=== PATIENT | male | born 1950 | race Caucasian/White ===

== ENCOUNTER → 2018-05-20 | Outpatient (CLI) | payer MEDICARE ==
--- NOTE | 2018-05-20 18:18 | Diagnostic Imaging Report ---
PROCEDURE:X-RAY ABDOMEN - KUB COMPARISON:None. INDICATIONS:KIDNEY STONE FOLLOW UP FINDINGS: Nonobstructive bowel gas pattern. 5-6 mm radiopaque density projects over the superior to mid left renal shadow. There are punctate radiopaque densities projecting over the superior pole of the left renal shadow. 3-4 mm radiopaque density projects in the mid right renal shadow. No radiopaque densities project over the expected course of the ureters. No acute bony abnormalities. Amorphous calcific densities projecting in the lower mid pelvis. CONCLUSION: 1. Bilateral nonobstructing calculi, as described. No radiopaque densities project over the expected course of the ureters. 2. Amorphous calcific densities projecting in the lower mid pelvis are likely located in the prostate and less likely represent bladder calculi. Hitesh Bond M.D. Dictated by: Hitesh Bond M.D. on 05/20/2018 at 18:24 Electronically approved by: Hitesh Bond M.D. on 05/20/2018 at 18:24
== END ==
LOC: RAD 15:14
PROVIDERS: ATTEND Urology
DX: N20.0 Calculus of kidney (principal)
CPT/HCPCS: 74018

== ENCOUNTER → 2018-05-28 | Day surgery (SDC) | payer MEDICARE ==
[2018-05-27 14:51] LABS: BASOPHILS % 0.3 % (0.0-1.0); EOSINOPHILS # (AUTO) 0.3 (0.0-0.4); EOSINOPHILS % 3.2 % (0.0-6.0); HEMATOCRIT 41.5 % (38.2-49.6); LYMPHOCYTES # (AUTO) 1.7 (1.0-3.2); LYMPHOCYTES % 17.9 % (18.0-39.1); MEAN CORPUSCULAR HEMOGLOBIN 30.2 pg (28-32); MEAN CORPUSCULAR HGB CONC 33.7 g/dL (31-35); MEAN CORPUSCULAR VOLUME 89.4 fL (81-99); MONOCYTES # (AUTO) 0.5 (0.2-0.8); MONOCYTES % 5.1 % (4.4-11.3); NEUTROPHILS % 73.3 % (38.7-80.0); PLATELET COUNT 177 x10e3/uL (140-360); RED BLOOD COUNT 4.64 x10e6/uL (4.3-5.7); RED CELL DISTRIBUTION WIDTH 12.9 % (11.7-14.4)
[2018-05-27 15:04] LABS: ANION GAP 14.5 mmol/L (8-16); CALCIUM 9.2 mg/dL (8.4-10.2); CREATININE, SERUM 1.54 mg/dL (0.72-1.25); POTASSIUM 3.5 mmol/L (3.5-5.1)
--- NOTE | 2018-05-27 15:28 | Diagnostic Imaging Report ---
PROCEDURE: Frontal and lateral views of the chest. COMPARISON: None. INDICATIONS: PREOPERATIVE CHEST XRAY FOR ESWL SURGERY FINDINGS: Lines/tubes: None. Lungs: The lungs are well inflated and clear. There is no evidence of pneumonia or pulmonary edema. Pleura: There is no pleural effusion or pneumothorax. Heart and mediastinum: The heart and the mediastinum are normal. Bones: No acute bony abnormality. Degenerative changes in the thoracic spine. IMPRESSION: 1. No acute cardiopulmonary abnormalities. Hitesh Bond M.D. Dictated by: iHtesh Bond M.D. on 05/27/2018 at 15:34 Electronically approved by: Hitesh Bond M.D. on 05/27/2018 at 15:34
[~2018-05-28] MED LIST: AMLODIPINE BESYL5 MG PO; ATORVASTATIN CA20 MG PO; B COMPLEX1 EACH PO; CEFTRIAXONE SOD 1 GM VIAL ONE; DEXAMETHASONE SOD PHOS INJ 4 MG/ML VIAL ONE; FLOMAX0.4 MG PO; LATANOPROST2.5 ML OU; LIDOCAINE HCL 2% LOCAL INJ 5 ML SDV VIAL INJ ONE; LISINOPRIL-HCT1 EACH PO; METFORMIN HCL500 MG PO; MULTIVITAMINS1 EAC7 PO; OMEGA 3 1,0001 EACH PO; OMEPRAZOLE20 MG PO; ONDANSETRON HCL INJ 2 MG/ML VIAL ONE; OSTEO BI-FLEX1 EAC2 PO; POTASSIUM CITR10 MEQ PO; PROPOFOL IV EMULSION 10 MG/ML 50 ML VIAL ONE; SEVOFLURANE INHAL SOLN 250 ML PEN BTL ONE; TIMOPTIC 0.5%1 EACH OU; TURMERIC/CURCUMIN PO; VITAMIN D34000 UNIT PO
--- NOTE | 2018-05-28 07:33 | Diagnostic Imaging Report ---
EXAMINATION: KUB - two views INDICATION: KUB COMPARISON: CT Abdomen/Pelvis 05/26/18 and CXR 05/26/18. FINDINGS: There is a 7 mm calcification overlying the left upper pole kidney and a 4 mm calcification overlying the right mid pole kidney. Additional 3 mm calcification overlying the right mid pole kidney may be a renal stone or within the bowel. No other urinary calcifications are noted. Status post cholecystectomy. Non-obstructive bowel gas pattern. No acute bony findings. IMPRESSION: Renal stones as above: 7 mm overlying the left upper pole and 4 mm overlying the right mid pole. Signed by: Dr. Shanique Naik MD on 05/28/2018 7:30 AM
--- NOTE | 2018-05-28 07:46 | Operative Report ---
DATE OF PROCEDURE: May 28, 2018 PREOPERATIVE DIAGNOSIS: Left kidney stone. POSTOPERATIVE DIAGNOSIS: Left kidney stone. PROCEDURES 1. Staged shock wave lithotripsy, left side. 2. Supervision of fluoroscopy. ANESTHESIA: General. ESTIMATED BLOOD LOSS: Minimal. COMPLICATIONS: None. INDICATIONS: Mr. Damon is a very pleasant 68-year-old male with symptomatic left-sided kidney stones. He and I had a long discussion about alternatives, risks and benefits, including doing nothing, shock wave lithotripsy, ureteroscopy, percutaneous surgery and open surgery. He voiced understanding of the options, alternatives, risks and benefits and elected to proceed. PROCEDURE IN DETAIL: After informed consent was obtained, the patient was taken to the operative suite, placed supine and underwent general anesthesia by the anesthesia service and given routine perioperative instructions. The stone was then localized in the X, Y and Z planes. A total of 3000 shocks at a maximum power setting of 6 were delivered to the stone. The patient tolerated the procedure well and was transported to the recovery room in excellent condition. SUPERVISION OF FLUOROSCOPY: I was present throughout the entire procedure and I supervised the use of fluoroscopy. Job#: [id number] RI cc: DEYA OCHOA MD
== END | disposition home or self-care (01) ==
LOC: OR 05:16
PROVIDERS: ATTEND Urology
DX: N20.0 Calculus of kidney (principal); R97.20 Elevated prostate specific antigen [PSA]; E11.22 Type 2 diabetes mellitus with diabetic chronic kidney disease; I12.9 Hypertensive chronic kidney disease with stage 1 through stage 4 chronic kidney disease, or unspecified chronic kidney disease; N18.9 Chronic kidney disease, unspecified; G47.33 Obstructive sleep apnea (adult) (pediatric); Z01.810 Encounter for preprocedural cardiovascular examination; Z01.812 Encounter for preprocedural laboratory examination; Z01.818 Encounter for other preprocedural examination; Z79.84 Long term (current) use of oral hypoglycemic drugs
CPT/HCPCS: 36415 ×2; 50590; 71046; 74018; 80048; 82948; 85025; 93005; J0696; J1100; J2001; J2405

== ENCOUNTER → 2018-07-02 | Outpatient (CLI) | payer MEDICARE ==
[~2018-07-02] MED LIST changes: -CEFTRIAXONE SOD 1 GM VIAL ONE; -DEXAMETHASONE SOD PHOS INJ 4 MG/ML VIAL ONE; -LIDOCAINE HCL 2% LOCAL INJ 5 ML SDV VIAL INJ ONE; -ONDANSETRON HCL INJ 2 MG/ML VIAL ONE; -PROPOFOL IV EMULSION 10 MG/ML 50 ML VIAL ONE; -SEVOFLURANE INHAL SOLN 250 ML PEN BTL ONE
--- NOTE | 2018-07-02 15:36 | Diagnostic Imaging Report ---
RADIOGRAPH(S) OF THE ABDOMEN AND PELVIS, 2 view(s) HISTORY: Calculus of kidney, right side COMPARISON: Abdominal pelvic radiographs May 28, 2018 and May 20, 2018. FINDINGS: No specific evidence of obstruction or ileus. Metallic clips in the right upper quadrant of the abdomen are compatible with prior cholecystectomy. A stable 3 mm calcific density projects at the interpolar region of the right kidney. The remaining radiopaque densities are not definitively seen on this x-ray and may have represented radiopaque bowel contents. Multiple stable pelvic calcifications in the region of the prostate. The bones are partially obscured by stool and overlying bowel gas. IMPRESSION: 1. Nonobstructive bowel gas pattern. 2. A 3 mm right abdominal calcification, a small renal calculus remains a consideration. If further imaging evaluation is warranted, consider a follow-up renal ultrasound. Signed by: Dr. Haris Hunter D.O., M.M.M. on 07/02/2018 3:31 PM
== END ==
LOC: RAD 13:09
PROVIDERS: ATTEND Urology
DX: N20.0 Calculus of kidney (principal)
CPT/HCPCS: 74018

== ENCOUNTER → 2019-05-29 | Day surgery (SDC) | payer MEDICARE ==
--- NOTE | 2019-05-27 14:51 | Diagnostic Imaging Report ---
Exam: KUB - 2 views Indication: Renal calculi, preoperative Comparison: KUB of 07/02/2018 Findings: 4 mm right upper pole and 4 mm left upper pole renal calculi. No other radiographically apparent calculi. 5 to 6 mm calcific densities overlying the lower pelvis possibly represent bladder calculi, prostate calculi, or phleboliths. Nonobstructive bowel gas pattern. No free air. Status post cholecystectomy. Degenerative changes of the lower lumbar spine. Impression: 4 mm right upper pole and 4 mm left upper pole renal calculi. Calcific densities overlying the lower pelvis may represent phlebolith or bladder calculi or prostate calcifications. Signed by: Paolo Adorno MD on 05/27/2019 2:47 PM
--- NOTE | 2019-05-27 14:54 | Diagnostic Imaging Report ---
EXAMINATION: CHEST 2 VIEWS INDICATION: Pre-operative COMPARISON: None FINDINGS: LINES/TUBES:None LUNGS:The lungs are well-inflated. No focal consolidation or pulmonary edema. PLEURA:No pleural effusion or pneumothorax. MEDIASTINUM:The cardiomediastinal silhouette appears normal in size and shape. BONES/SOFT TISSUES:No acute osseous injury. Degenerative changes of the visualized spine. ABDOMEN:No free air under the diaphragm. Status post cholecystectomy. IMPRESSION: No focal pneumonia or pulmonary edema. Signed by: Paolo Adorno MD on 05/27/2019 2:50 PM
[2019-05-27 16:09] LABS: BASOPHILS % 0.4 % (0.0-1.0); EOSINOPHILS % 0.1 % (0.0-6.0); HEMOGLOBIN 13.7 g/dL (14.0-18.0); LYMPHOCYTES # (AUTO) 1.8 (1.0-3.2); LYMPHOCYTES % 16.6 % (18.0-39.1); MEAN CORPUSCULAR HEMOGLOBIN 29.1 pg (28-32); MEAN CORPUSCULAR HGB CONC 32.6 g/dL (31-35); MEAN CORPUSCULAR VOLUME 89.2 fL (81-99); MONOCYTES # (AUTO) 0.8 (0.2-0.8); NEUTROPHILS % 74.7 % (38.7-80.0); PLATELET COUNT 235 x10e3/uL (140-360); RED BLOOD COUNT 4.71 x10e6/uL (4.3-5.7); RED CELL DISTRIBUTION WIDTH 13.1 % (11.7-14.4)
[2019-05-27 16:27] LABS: ANION GAP 15.9 mmol/L (8-16); CALCIUM 9.1 mg/dL (8.4-10.2); CREATININE, SERUM 1.57 mg/dL (0.72-1.25); POTASSIUM 3.9 mmol/L (3.5-5.1)
[~2019-05-29] MED LIST changes: +CEFTRIAXONE SOD 1 GM/NS 50 ML 50 ML IV ONE; +DEPO-MEDRO80 MG/1 ML PO; +LEVOCETIRIZINE D5 MG PO; +LIDOCAINE HCL 2% LOCAL INJ 5 ML SDV VIAL INJ ONE; +MIDAZOLAM HCL 2 MG/2 ML VIAL ONE; +ONDANSETRON HCL INJ 2MG/ML 2ML 2 MG/ML VIAL ONE; +PROPOFOL IV EMULSION 10 MG/ML 20 ML VIAL ONE; +SEVOFLURANE INHAL SOLN 250 ML PEN BTL ONE; +allergy PO
--- OUTSIDE RECORDS SUMMARY | 2019-05-29 05:06 | XMS REPORT | Clinical Summary ---
Author Author [facility] Organization [facility] Address Unknown Phone Unavailable Care Team Providers Care Family Program Specialist Name Role Phone Maulik Salcedo MD PCP Unavailable Allergies No Known Allergies Medications End Date Status Medication Sig Dispensed Refills Start Date Active latanoprost (XALATAN) INT 1 GTT IN 12 0.005 % ophthalmic OU Q NIGHT 7 solution Active timolol (TIMOPTIC) 0.5 % INT 1 GTT IN ophthalmic solution OU BID 7 Active multivitamin with Take by 0 minerals tablet mouth. Active omega-3 acid ethyl esters Take by mouth 0 (LOVAZA) 1 gram capsule 2 (two) times 1 a day. Active cholecalciferol, vitamin Take 4,000 0 D3, (VITAMIN D3) 4,000 Units by unit capsule mouth daily. Active VITAMIN B COMPLEX Take by mouth 0 (B-COMPLEX ORAL) daily. Active VITAMIN A ACETATE SL Place under 0 the tongue. Active TURMERIC ORAL Take by 0 mouth. Active acetaminophen (TYLENOL Take by 0 ARTHRITIS PAIN ORAL) mouth. Active cetirizine HCl (ZYRTEC Take 5 mg by 0 ORAL) mouth. Active lisinopril-hydrochlorothi TK 2 TS PO D 180 tablet 1 azide 9 (PRINZIDE,ZESTORETIC) 20-12.5 mg per tablet Active atorvastatin (LIPITOR) 20 TK 1 T PO Q 90 tablet 1 MG tablet NIGHT 9 Active fluticasone Inhale 1 1 each 11 furoate-vilanterol (BREO inhalations 9 ELLIPTA) 200-25 mcg/dose once daily. blister with device powder for inhalation Active amLODIPine (NORVASC) 2.5 TK 1 T PO D 90 tablet 1 mg tablet 9 Active omeprazole (PriLOSEC) 20 TK ONE C PO 90 capsule 1 MG capsule QD 9 Active metFORMIN (GLUCOPHAGE) Take 1 tablet 180 tablet 1 500 mg tablet (500 mg 9 total) by mouth 2 (two) times a day with meals. Active tamsulosin (FLOMAX) 0.4 TK 1 C PO D 90 capsule 3 mg capsule 9 Active potassium citrate TAKE 1 TABLET 90 tablet 5 (UROCIT-K) 10 mEq (1,080 BY MOUTH 9 mg) CR tablet THREE TIMES DAILY 03/04/2019 Discontinued amLODIPine (NORVASC) 2.5 TK 1 T PO D 3 mg tablet 7 03/04/2019 Discontinued lisinopril-hydrochlorothi TK 2 TS PO D 2 azide 7 (PRINZIDE,ZESTORETIC) 20-12.5 mg per tablet 03/04/2019 Discontinued omeprazole (PriLOSEC) 20 TK ONE C PO 0 MG capsule QD 7 03/04/2019 Discontinued atorvastatin (LIPITOR) 20 TK 1 T PO Q 3 MG tablet NIGHT 7 12/19/2018 Discontinued potassium citrate TK 1 T PO TID 2 (UROCIT-K) 10 mEq (1,080 7 mg) CR tablet 11/17/2018 Discontinued metFORMIN (GLUCOPHAGE) daily 3 1,000 mg tablet 7 03/04/2019 Discontinued tamsulosin (FLOMAX) 0.4 TK 1 C PO D 3 mg capsule,extended 7 release 24hr 11/17/2018 Discontinued sodium,potassium,mag Please use as 354 mL 0 sulfates (SUPREP BOWEL directed 7 PREP KIT) 17.5-3.13-1.6 gram recon soln 03/04/2019 Discontinued metFORMIN (GLUCOPHAGE) Take 500 mg 0 500 mg tablet by mouth 2 (two) times a day with meals. 03/04/2019 Discontinued quiNINE (QUALAQUIN) 324 Take 648 mg 0 MG capsule by mouth every 8 (eight) hours. 03/04/2019 Discontinued fluticasone-vilanterol Inhale 1 0 (BREO ELLIPTA) 200-25 inhalations mcg/dose blister with once daily. device powder for inhalation 02/13/2019 Discontinued potassium citrate TK 1 T PO TID 90 tablet 1 (UROCIT-K) 10 mEq (1,080 9 mg) CR tablet 03/04/2019 Discontinued potassium citrate TAKE 1 TABLET 90 tablet 0 (UROCIT-K) 10 mEq (1,080 BY MOUTH 9 mg) CR tablet THREE TIMES DAILY Active Problems Problem Noted Date Family history of cervical cancer 12/31/2018 Family history of colon cancer 12/31/2018 Family history of ischemic heart disease 12/31/2018 Pseudophakia of both eyes 12/31/2018 History of cataract extraction 12/31/2018 History of cholecystectomy 12/31/2018 Hyperplasia of prostate with lower urinary tract symptoms (LUTS) 12/31/2018 Sensory hearing loss, bilateral 12/31/2018 Overweight 12/31/2018 BMI 27.0-27.9,adult 12/31/2018 Routine general medical examination at a health care facility 12/31/2018 Chronic hoarseness 12/31/2018 Overview: evaluated by ent will follow up with ent in one month Mixed hyperlipidemia 11/17/2018 Controlled type 2 diabetes mellitus with diabetic nephropathy, without 11/17/2018 long-term current use of insulin Recurrent kidney stones 11/17/2018 CKD (chronic kidney disease) stage 3, GFR 30-59 ml/min 11/17/2018 Benign hypertensive kidney disease 11/17/2018 BMI 26.0-26.9,adult 11/17/2018 Mild intermittent asthma without complication 11/17/2018 Open-angle glaucoma of both eyes 11/17/2018 VIRAJ on CPAP 11/17/2018 Diverticulosis large intestine w/o perforation or abscess w/o bleeding 11/11/2017 Diaphragmatic hernia without obstruction and without gangrene 11/11/2017 Dyspepsia 09/25/2017 Gastroesophageal reflux disease 09/25/2017 Multiple gastric polyps 09/25/2017 Diarrhea 09/25/2017 Polyp of colon 09/25/2017 Encounters Care Team Description Date Type Specialty Maulik Salcedo MD 03/04/2019 Orders Only Family Medicine Maulik Salcedo MD 02/13/2019 Refill Family Medicine Anh Hernandez, SHAYY Diaphragmatic hernia without obstruction and without gangrene (Primary Dx); Mild intermittent asthma without complication; VIRAJ on CPAP; Gastroesophageal reflux disease without esophagitis; Multiple gastric polyps; Polyp of colon, unspecified part of colon, unspecified type; Diverticulosis large intestine w/o perforation or abscess w/o bleeding; Controlled type 2 diabetes mellitus with stage 3 chronic kidney disease, without long-term current use of insulin (HCC); CKD (chronic kidney disease) stage 3, GFR 30-59 ml/min (HCC); Benign hypertensive kidney disease; Open-angle glaucoma of both eyes, unspecified glaucoma stage, unspecified open- angle glaucoma type; Mixed hyperlipidemia; BMI 27.0-27.9,adult; Overweight; Sensory hearing loss, bilateral; Hyperplasia of prostate with lower urinary tract symptoms (LUTS); History of cholecystectomy; History of cataract extraction, unspecified laterality; Pseudophakia of both eyes; Family history of ischemic heart disease; Family history of colon cancer; Family history of cervical cancer; Routine general medical examination at a health care facility; Recurrent kidney stones; Chronic hoarseness 12/31/2018 Office Visit Family Medicine Vero Mccartney MA 12/19/2018 Orders Only Family Medicine Maulik Salcedo MD Benign hypertensive kidney disease (Primary Dx); CKD (chronic kidney disease) stage 3, GFR 30-59 ml/min ([facility]); Recurrent kidney stones; Controlled type 2 diabetes mellitus with diabetic nephropathy, without long-term current use of insulin ([facility]); Mixed hyperlipidemia; BMI 26.0-26.9,adult; Mild intermittent asthma without complication; Gastroesophageal reflux disease without esophagitis; Open-angle glaucoma of both eyes, unspecified glaucoma stage, unspecified open- angle glaucoma type; VIRAJ on CPAP; Chronic hoarseness 11/17/2018 Office Visit Family Medicine after 05/28/2018 Immunizations Name Dates Previously Given Next Due INFLUENZA QUAD 08/13/2018, 07/19/2011, 08/07/2010, 09/09/2006, 09/18/2005, 08/15/2004, 08/18/2003 Pneumococcal Conjugate 11/17/2018 13-Valent Pneumococcal 03/24/2009 Polysaccharide Tdap 03/24/2009 Family History Medical History Relation Name Comments Cancer Father Dick 1963 [place] Cervical cancer Mother Ruby Mar[place] Heart disease Mother Ruby 1987 [place] Heart failure Mother Ruby Mar[place] Colon cancer Other half sister [dad] Relation Name Status Comments Father Dick [place] Mother Ruby Marisol Other half sister [dad] Social History Date Tobacco Use Types Packs/Day Years Used Never Smoker Smokeless Tobacco: Never Used Alcohol Use Drinks/Week oz/Week Comments No Sex Assigned at Date Recorded Male 11/11/2018 9:48 AM [employer] Job Start Date Occupation Not on file Not on file Not on file Travel End Travel History Travel Start No recent travel history available. Last Filed Vital Signs Time Taken Vital Sign Reading 12/31/2018 1:18 PM CDT Blood Pressure 136/79 12/31/2018 1:15 PM CDT Pulse 65 12/31/2018 1:15 PM CDT Temperature 36.6 C (97.9 F) - Respiratory Rate - 12/31/2018 1:15 PM CDT Oxygen Saturation 96% - Inhaled Oxygen - Concentration 12/31/2018 1:15 PM CDT Weight 76 kg (167 lb 9.6 oz) 12/31/2018 1:15 PM CDT Height 167.6 cm (5' 6") 12/31/2018 1:15 PM CDT Body Mass Index 27.05 Plan of Treatment Care Team Description Date Type Specialty Maulik Salcedo MD [address] [place] [id number] [phone] 07/03/2019 Office Visit Family Medicine Health Maintenance Due Date Last Done Comments DIABETIC RETINAL EYE EXAM 1949 DIABETIC FOOT EXAM 1959 SHINGLES VACCINES (#1) 1999 INFLUENZA VACCINE 05/14/2019 08/13/2018, 07/19/2011, 08/07/2010, Additional history exists 65+ PNEUMOCOCCAL VACCINE 11/17/2019 11/17/2018, 03/24/2009 (2 of 2 - PPSV23) COLONOSCOPY SCREENING 10/29/2027 10/29/2017 Procedures Comments Procedure Name Priority Date/Time Associated Diagnosis CBC WITH PLATELET AND Routine 12/18/2018 Recurrent kidney stones DIFFERENTIAL 9:47 AM [employer] Controlled type 2 diabetes mellitus with diabetic nephropathy, without long-term current use of insulin (HCC) Mild intermittent asthma without complication HEMOGLOBIN A1C Routine 12/18/2018 Controlled type 2 9:47 AM [employer] WORK[employer] diabetes mellitus with diabetic nephropathy, without long-term current use of insulin (HCC) URINALYSIS, AUTOMATED Routine 12/18/2018 Controlled type 2 WITH MICROSCOPY 9:47 AM [employer] WORK[employer] diabetes mellitus with diabetic nephropathy, without long-term current use of insulin ([facility]) MICROALBUMIN / CREATININE Routine 12/18/2018 Controlled type 2 URINE RATIO 9:47 AM [employer] WORK[employer] diabetes mellitus with diabetic nephropathy, without long-term current use of insulin ([facility]) HEPATIC FUNCTION PANEL Routine 12/18/2018 Mixed hyperlipidemia 9:47 AM [employer] WORK[employer] LIPID PANEL Routine 12/18/2018 Mixed hyperlipidemia 9:47 AM [employer] WORK[employer] BASIC METABOLIC PANEL Routine 12/18/2018 Benign hypertensive 9:47 AM [employer] WORK[employer] kidney disease CKD (chronic kidney disease) stage 3, GFR 30-59 ml/min ([facility]) after 05/28/2018 Results * Microalbumin / creatinine urine ratio (12/18/2018 9:47 AM [employer]ATE WORKER) Creatinine, 157 20 - 320 mg/dL [facility] urine, random [facility] [place] Microalbumin, 0.6 See Note: mg/dL [facility] urine Comment: DI[facility]NOST[facility] Reference Range: [place] Reference Range Not established Microalbumin/cr 4 <30 mcg/mg creat [facility] eatinine ratio Comment: DIAGNOSTICS The ADA defines abnormalities [place] in albumin excretion as follows: Category Result (mcg/mg creatinine) Normal <30 Microalbuminuria 30-299 Clinical albuminuria > KF=261 The ADA recommends that at least two of three specimens collected within a 3-6 month period be abnormal before considering a patient to be within a diagnostic category. Specimen Urine Narrative Performed At FASTING:YES [facility] FASTING: YES Resulting Agency Comment Performing Organization Information: Site ID: [id number] Name: [facility] Address: [address] [place] [phone] Director: Roxanne Agudelo Performing Organization Address City/State/Zipcode Phone Number [facility] [address] [address] * Urinalysis, automated with microscopy (12/18/2018 9:47 AM [employer]ATE WORKER) Color, UA YELLOW YELLOW [facility] [place] Appearance CLEAR CLEAR [facility] [place] Specific 1.020 1.001 - 1.035 [facility] gravity, urine [facility] [place] pH, urine 7.0 5.0 - 8.0 [facility] [place] Glucose, urine NEGATIVE NEGATIVE [facility] [place] Bilirubin, UA NEGATIVE NEGATIVE [facility] [place] Ketones, UA NEGATIVE NEGATIVE [facility] [place] Occult blood, NEGATIVE NEGATIVE [facility] urine [facility] [place] Protein, UA NEGATIVE NEGATIVE [facility] [place] Nitrite, UA NEGATIVE NEGATIVE [facility] [place] Leukocyte NEGATIVE NEGATIVE [facility] esterase, UA [facility] [place] WBC, UA NONE SEEN < OR=5 /HPF [facility] [place] RBC, UA NONE SEEN < OR=2 /HPF [facility] [place] Squamous NONE SEEN < OR=5 /HPF [facility] epithelial [facility] cells, UA [place] Bacteria, UA NONE SEEN NONE SEEN /HPF [facility] [place] Hyaline casts, NONE SEEN NONE SEEN /LPF [facility] UA [facility] [place] Specimen Urine Narrative Performed At FASTING:YES [facility] FASTING: YES Resulting Agency Comment Performing Organization Information: Site ID: [id number] Name: [facility] Address: [address] [place] [id number] Director: Roxanne Agudelo Performing Organization Address City/State/Zipcode Phone Number [facility] [address] [address] * CBC with platelet and differential (12/18/2018 9:47 AM [employer]ATE WORKER) WBC 5.8 3.8 - 10.8 [facility] Thousand/uL [facility] [place] RBC 4.76 4.20 - 5.80 [facility] Million/uL [facility] [place] HGB 14.2 13.2 - 17.1 g/dL [facility] [place] HCT 42.1 38.5 - 50.0 % [facility] [place] MCV 88.4 80.0 - 100.0 fL [facility] [place] MCH 29.8 27.0 - 33.0 pg [facility] [place] MCHC 33.7 32.0 - 36.0 g/dL [facility] [place] RDW 13.0 11.0 - 15.0 % [facility] [place] Platelet count 176 140 - 400 [facility] Thousand/uL [facility] [place] MPV 10.3 7.5 - 12.5 fL [facility] [place] Neutrophils, 3,967 1,500 - 7,800 [facility] absolute cells/uL [facility] [place] Lymphocytes, 1,114 850 - 3,900 cells/uL [facility] absolute [facility] [place] Monocytes, 499 200 - 950 cells/uL [facility] absolute [facility] [place] Eosinophils, 180 15 - 500 cells/uL [facility] absolute [facility] [place] Basophils, 41 0 - 200 cells/uL [facility] absolute [facility] [place] Neutrophils 68.4 % [facility] [place] Lymphocytes 19.2 % [facility] [place] Monocytes 8.6 % [facility] [place] Eosinophils 3.1 % [facility] [place] Basophils + RC 0.7 % [facility] [place] Specimen Blood Narrative Performed At FASTING:YES [facility] FASTING: YES Resulting Agency Comment Performing Organization Information: Site ID: [id number] Name: [facility] Address: [address] [place] [phone] Director: Roxanne Agudelo Performing Organization Address City/[facility] Cent[facility] Phone Number [address]UR[address] [place] [address] * Hemoglobin A1c (12/18/2018 9:47 AM [employer]ATE WORKER) Hemoglobin A1C 6.1 (H) <5.7 % of total Hgb [facility] Comment: [facility] For someone without known [place] diabetes, a hemoglobin A1c value between 5.7% and 6.4% is consistent with prediabetes and should be confirmed with a follow-up test. For someone with known diabetes, a value <7% indicates that their diabetes is well controlled. A1c targets should be individualized based on duration of diabetes, age, comorbid conditions, and other considerations. This assay result is consistent with an increased risk of diabetes. Currently, no consensus exists regarding use of hemoglobin A1c for diagnosis of diabetes for children. Specimen Blood Narrative Performed At FASTING:YES [facility] FASTING: YES Resulting Agency Comment Performing Organization Information: Site ID: [id number] Name: [facility] Address: [address] [place] [phone] Director: Roxanne Agudelo Performing Organization Address City/[facility]/Zipcode Phone Number [place] [address] * Hepatic function panel (12/18/2018 9:47 AM SLATE WORKER) Protein 6.7 6.1 - 8.1 g/dL [facility] [place] Albumin, S 4.2 3.6 - 5.1 g/dL [facility] [place] Globulin, total 2.5 1.9 - 3.7 g/dL [facility] (calc) [facility] [place] Albumin/globuli 1.7 1.0 - 2.5 (calc) [facility] n ratio [facility] [place] Total bilirubin 0.7 0.2 - 1.2 mg/dL [facility] [place] Bilirubin 0.1 < OR=0.2 mg/dL [facility] direct [facility] [place] Bilirubin, 0.6 0.2 - 1.2 mg/dL [facility] indirect (calc) [facility] [place] Alkaline 70 40 - 115 U/L [facility] phosphatase [facility] [place] AST 19 10 - 35 U/L [facility] [place] ALT 22 9 - 46 U/L [facility] [place] Specimen Blood Narrative Performed At FASTING:YES [facility] FASTING: YES Resulting Agency Comment Performing Organization Information: Site ID: [id number] Name: [facility] Address: [address] [place] [phone] Director: Roxanne Agudelo Performing Organization Address [facility] Center[facility] Phone Number [facility] [address] [address] * Lipid panel (12/18/2018 9:47 AM SLATE WORKER) [facility] Cholesterol, 162 <200 mg/dL [facility] total [facility] [place] HDL cholesterol 48 >40 mg/dL [facility] [place] Triglycerides 149 <150 mg/dL [facility] [place] LDL cholesterol 89 mg/dL (calc) [facility] calculated Comment: DI[facility]ST[facility] Reference range: <100 [place] Desirable range <100 mg/dL for primary prevention; <70 mg/dL for patients with CHD or diabetic patients with > or=2 CHD risk factors. LDL-C is now calculated using the Tommy-Alyx calculation, which is a validated novel method providing better accuracy than the Friedewald equation in the estimation of LDL-C. Tommy SMITH et al. DANIEL. 2013;310(19): 0973-3517 (http://education.MoneyMail.com/faq/TSU562) Cholesterol/HDL 3.4 <5.0 (calc) [facility] ratio [facility] [place] Non-HDL 114 <130 mg/dL (calc) [facility] cholesterol Comment: DIAGNOST[facility] For patients with diabetes [place] plus 1 major ASCVD risk factor, treating to a non-HDL-C goal of <100 mg/dL (LDL-C of <70 mg/dL) is considered a therapeutic option. Specimen Blood Narrative Performed At FASTING:YES [facility] FASTING: YES Resulting Agency Comment Performing Organization Information: Site ID: [id number] Name: [facility] Address: [address] [place] [id number] Director: Roxanne Agudelo Performing Organization Address City/[facility]/Zipcode Phone Number [facility] [address] [phone] * Basic metabolic panel (12/18/2018 9:47 AM SLATE WORKER) [facility] Glucose 112 (H) 65 - 99 mg/dL [facility] Comment: DI[facility]NOST[facility] Fasting [place] reference interval For someone without known diabetes, a glucose value between 100 and 125 mg/dL is consistent with prediabetes and should be confirmed with a follow-up test. BUN, whole 25 7 - 25 mg/dL [facility] blood [facility] [place] Creatinine 1.56 (H) 0.70 - 1.25 mg/dL [facility] Comment: DI[facility] For patients >49 years of age, [place] the reference limit for Creatinine is approximately 13% higher for people identified as -Filipino. EGFR Non-Afr. 45 (L) > OR=60 [facility] Filipino mL/min/1.73m2 [facility] [place] EGFR 52 (L) > OR=60 [facility] Filipino mL/min/1.73m2 [facility] BUN/creatinine 16 6 - 22 (calc) [facility] ratio [facility] [place] Sodium 140 135 - 146 mmol/L [facility] [place] Potassium 4.2 3.5 - 5.3 mmol/L [facility] [place] Chloride 102 98 - 110 mmol/L [facility] [place] CO2 32 20 - 32 mmol/L [facility] [place] Calcium 9.3 8.6 - 10.3 mg/dL [facility] [place] Specimen Blood Narrative Performed At FASTING:YES [facility] FASTING: YES Resulting Agency Comment Performing Organization Information: Site ID: [id number] Name: [facility] Address: [address] [place] [phone] Director: Roxanne Agudelo Performing Organization Address City/State/Zipcode Phone Number [facility] [address] [place], [place] [phone] after 05/28/2018 Insurance Type Payer Benefit Subscriber ID Effective Phone Address Plan / Dates Group HMO [employer] CIGNA xxxxxxxx [id number] [facility] resaubree [facility] AD[facility] Advance Directives Patient has advance care planning documents on file. For more information, catina parra contact: Adama Molina [address] [place] [address]
--- OUTSIDE RECORDS SUMMARY | 2019-05-29 05:07 | XMS REPORT ---
Author Author Admin, [place] Organization [facility] Address [address] [place] [address] Phone Allergies, Adverse Reactions, Alerts Allergy Name Reaction Description Start Date Severity Status Provider DUST Head clogges up Mild Active Ramila Hernández MD GRASS Head clogges up Mild Active Ramila Hernández MD Conditions or Problems Problem Name Problem Code Onset Date Status Entry Date Provider Comment Standard Description Annotate Shoulder joint pain, left 719.41 Active Jackie Doshi D.O. Pain in joint involving shoulder region PSA, increased 790.93 Active Francesca WEISS Elevated prostate specific antigen [PSA] Annual exam V70.0 Active Francesca WEISS Routine general medical examination at a health care facility Dyslipidemia 272.4 Active Francesca PIZARROP Other and unspecified hyperlipidemia Leg cramp, left 729.82 Active Francesca PIZARROP Cramp of limb Screening for std V74.5 Active Francesca WEISS Screening examination for venereal disease Atherosclerosis of [place] arteries of extremities with intermittent claudication, bilateral legs 440.21 Active Francesca PIZARROP Atherosclerosis of [place] arteries of the extremities with intermittent claudication Osteoarthritis, foot, 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 Active Francesca PIZARROP Osteoarthrosis, unspecified whether generalized or localized, involving ankle and foot Arthritis, 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 Active Bushra Mcdermott MD Lumbosacral spondylosis without myelopathy Toe pain, right 729.5 Active Bushra Mcdermott MD Pain in limb Back pain 724.5 Active Bushra Mcdermott MD Backache, unspecified Paronychia of toe 681.11 Active Bushra Mcdermott MD Onychia and paronychia of toe Overweight Active Jose Bautista MD Overweight GERD 530.81 Active Mendoza Todd MD R3 Esophageal reflux Hx of kidney stones V13.01 Active Mendoza Todd MD R3 Personal history of urinary calculi BPH 600.00 Active Jose Bautista MD Hypertrophy (benign) of prostate without urinary obstruction and other lower urinary tract (LUTS) Chronic diarrhea 787.91 Active Jose Bautista MD Diarrhea Hypertension 401.9 Active Jose Bautista MD Unspecified essential hypertension BMI 25.0-25.9 Active Rosaura Falcon MD Body Mass Index 25.0-25.9, adult DIABETES MELLITUS, TYPE II, CONTROLLED, W/RENAL COMPS 250.40 Active Rosaura Falcon MD Diabetes mellitus with renal manifestations, type II or unspecified type, not stated as uncontrolled Diabetes, Screening for V77.1 Inactive Francesca PIZARROP Screening for diabetes mellitus Diabetes, Screening for ICD-V77.1 Inactive Francesca PIZARROP Cough ICD-786.2 Inactive Mendoza Todd MD R3 Fever Unspecified ICD-780.60 Inactive Mendoza Todd MD R3 Nephropathy, diabetic ICD-250.40 Inactive Francesca PIZARROP Daytime somnolence ICD-780.09 Inactive Francesca PIZARROP Snoring ICD-786.09 Inactive Francesca Britt [facility] Allergic rhinitis ICD-477.9 Inactive Francescamk Britt [facility] Rhinosinusitis, chronic ICD-473.8 Inactive Francesca Britt [facility] Vaccination, flu ICD-V04.8 Inactive Francesca Britt [facility] Vaccine pneumococcal ICD-V03.82 Inactive Francesca Britt [facility] BPH (benign prostatic hypertrophy) ICD-600.00 Inactive Francesca Britt [facility] Plantar fasciitis ICD-728.71 Inactive Francesca Britt [facility] Well adult ICD-V70.0 Inactive Francesca Britt [facility] Dizziness / vertigo ICD-780.4 Inactive Francesca Britt [facility] Tinnitus ICD-388.30 Inactive Francesca Britt [facility] Glaucoma ICD-365.9 Inactive Francesca Britt [facility] Heel pain, right ICD-729.5 Inactive Francesca Britt [facility] Abdominal pain, NOS ICD-789.00 Inactive Francesca Britt [facility] Obstructive sleep apnea ICD-327.23 Inactive Francesca Britt [facility] Throat pain ICD-784.1 Inactive Francesca Britt [facility] Allergic rhinitis ICD-477.9 Inactive Francesca Britt [facility] Sinusitis, acute ICD-461.9 Inactive Francesca Britt [facility] DIABETES MELLITUS ICD-250.00 Inactive José Miguel Rodrigues MD GASTRIC ULCER ICD-531.90 Inactive Francesca Britt [facility] OSTEOARTHRITIS, KNEE, LEFT ICD-715.96 Inactive Francescamk Britt [facility] OVERWEIGHT ICD-278.02 Inactive Mendoza Todd MD R3 SCREENING, COLON CANCER ICD-V76.51 Inactive Francesca Britt [facility] INFLUENZA, VACCINATION AGAINST V04.81 Inactive Jim Piña DO Need for prophylactic vaccination and inoculation against influenza INFLUENZA, VACCINATION AGAINST ICD-V04.81 Inactive Jim Piña DO BRONCHITIS, ACUTE ICD-466.0 Inactive Jim Bergerrs DO URI ICD-465.9 Inactive Jim Bergerrs DO CHRONIC KIDNEY DISEASE STAGE III (MODERATE) ICD-585.3 Inactive Francesca Britt [facility] SCREENING, COLON CANCER V76.51 Inactive Jim Piña DO Screening for malignant neoplasms of colon SCREENING, COLON CANCER ICD-V76.51 Inactive Jim Bergerrs DO CATARACTS ICD-366.9 Inactive Francesca Britt [facility] EARLY SATIETY ICD-780.94 Inactive Francesca Britt [facility] FATIGUE ICD-780.79 Inactive Frnacesca Britt [facility] History of CATARACTS 366.9 Inactive Francesca Britt [facility] Unspecified cataract Removed by Dr. Roper 2012 HYPERTRIGLYCERIDEMIA, SEVERE ICD-272.4 Inactive Francesca WEISS GERD ICD-530.81 Inactive Francesca WEISS HYPERLIPIDEMIA ICD-272.4 Inactive Jim Piña DO HYPERTENSION ICD-401.9 Inactive Francesca WEISS NEPHROLITHIASIS, HX OF ICD-V13.01 Inactive Francesca WEISS Cough 786.2 Resolved Mendoza Todd MD R3 Cough Fever Unspecified 780.60 Resolved Mendoza Todd MD R3 Fever, unspecified Nephropathy, diabetic 250.40 Resolved Francesca WEISS Diabetes mellitus with renal manifestations, type II or unspecified type, not stated as uncontrolled Daytime somnolence 780.09 Resolved Francesca WEISS Other alteration of consciousness Snoring 786.09 Resolved Francesca WEISS Other dyspnea and respiratory abnormality Allergic rhinitis 477.9 Resolved Francesca WEISS Allergic rhinitis, cause unspecified Rhinosinusitis, chronic 473.8 Resolved Francesca WEISS Other chronic sinusitis Vaccination, flu V04.8 Resolved Franecsca WEISS Need for prophylactic vaccination and inoculation against other viral diseases Vaccine pneumococcal V03.82 Resolved Francesca WEISS Need for prophylactic vaccination against Streptococcus pneumoniae [pneumococcus] BPH (benign prostatic hypertrophy) 600.00 Resolved Francesca WEISS Hypertrophy (benign) of prostate without urinary obstruction and other lower urinary tract (LUTS) Plantar fasciitis 728.71 Resolved Francesca WEISS Plantar fascial fibromatosis Well adult V70.0 Resolved Francesca WEISS Routine general medical examination at a health care facility Dizziness / vertigo 780.4 Resolved Francesca PIZARROP Dizziness and giddiness Tinnitus 388.30 Resolved Francesca PIZARROP Tinnitus, unspecified Glaucoma 365.9 Resolved Francesca PIZARROP Unspecified glaucoma Heel pain, right 729.5 Resolved Francesca PIZARROP Pain in limb Abdominal pain, NOS 789.00 Resolved Francesca PIZARROP Abdominal pain, unspecified site Obstructive sleep apnea 327.23 Resolved Francesca PIZARROP Obstructive sleep apnea (adult) (pediatric) Throat pain 784.1 Resolved Francesca PIZARROP Throat pain Allergic rhinitis 477.9 Resolved Francesca PIZARROP Allergic rhinitis, cause unspecified Sinusitis, acute 461.9 Resolved Francesca PIZARROP Acute sinusitis, unspecified DIABETES MELLITUS 250.00 Resolved Rosaura Falcon MD Diabetes mellitus without mention of complication, type II or unspecified type, not stated as uncontrolled GASTRIC ULCER 531.90 Resolved Francesca PIZARROP Gastric ulcer, unspecified as acute or chronic, without mention of hemorrhage or perforation, without mention of obstruction OSTEOARTHRITIS, KNEE, LEFT 715.96 Resolved Francesca PIZARROP Osteoarthrosis, unspecified whether generalized or localized, involving lower leg OVERWEIGHT 278.02 Resolved Mendoza Todd MD R3 Overweight SCREENING, COLON CANCER V76.51 Resolved Francesca PIZARROP Screening for malignant neoplasms of colon BRONCHITIS, ACUTE 466.0 Resolved Jim Piña DO Acute bronchitis URI 465.9 Resolved Jim Piña DO Acute upper respiratory infections of unspecified site CHRONIC KIDNEY DISEASE STAGE III (MODERATE) 585.3 Resolved Francesca Lorenza [employer] Chronic kidney disease, Stage III (moderate) EARLY SATIETY 780.94 Resolved Francesca WEISS Early satiety FATIGUE 780.79 Resolved Francesca WEISS Other malaise and fatigue HYPERTRIGLYCERIDEMIA, SEVERE 272.4 Resolved Francesca WEISS Other and unspecified hyperlipidemia GERD 530.81 Resolved Francesca WEISS Esophageal reflux HYPERLIPIDEMIA 272.4 Resolved Jim Piña DO Other and unspecified hyperlipidemia HYPERTENSION 401.9 Resolved Francesca WEISS Unspecified essential hypertension NEPHROLITHIASIS, HX OF V13.01 Resolved Francesca WEISS Personal history of urinary calculi Medication List Medication Instructions Start Date Stop Date Generic Name NDC Status Provider Patient Instruction BREO ELLIPTA 200-25 MCG/INH INHALATION AEROSOL POWDER BREATH ACTIVATED Take 1 puff per day FLUTICASONE FUROATE-VILANTEROL 02982767076 Active Jose Bautista MD Active GNP KRILL OIL OMEGA-3 300 MG ORAL CAPSULE 2 tablets by mouth twice daily KRILL OIL 13895425925 Active Francesca PIZARROP Active OMEPRAZOLE 20 MG ORAL CAPSULE DELAYED RELEASE 1 by mouth every day OMEPRAZOLE 26932934750 Active Francesca PIZARROP Active AMLODIPINE BESYLATE 2.5 MG ORAL TABLET 1 tab by mouth daily AMLODIPINE BESYLATE 79682762549 Active Francesca PIZARROP Active FLONASE ALLERGY RELIEF 50 MCG/ACT NASAL SUSPENSION 2 sprays each nostril every day FLUTICASONE PROPIONATE 09660586317 Active Johny Ruggiero MD Active FLOMAX 0.4 MG ORAL CAPSULE 1 tab daily TAMSULOSIN HCL 26013074243 Active Mariam Swan MD R2 Active STORMY MICROLET LANCETS Use one lancets to test blood sugar once daily in the morning. LANCETS 68186418184 Active Tram Pimentel Active STORMY CONTOUR NEXT EZ w/Device KIT use as directed to test blood sugar once daily BLOOD GLUCOSE MONITORING SUPPL 57243727152 Active Charu Cristina MONIQUE Active STORMY CONTOUR NEXT TEST IN VITRO STRIP use as directed to test blood sugar once daily GLUCOSE BLOOD 29231897783 Active Charu Cristina MONIQUE Active METFORMIN HCL 1000 MG ORAL TABLET 1/2 tab by mouth BID METFORMIN HCL 71186139187 Active Jose Bautista MD Active LISINOPRIL-HYDROCHLOROTHIAZIDE 20-12.5 MG ORAL TABLET 1 tablet by mouth BID LISINOPRIL-HYDROCHLOROTHIAZIDE 64904251197 Active Jose Bautista MD Active UROCIT-K 10 10 MEQ (1080 MG) ORAL TABLET EXTENDED RELEASE take 1 tab po Three Times a Day POTASSIUM CITRATE 33941372622 Active Francesca WEISS Active LIPITOR 20 MG ORAL TABLET 1 by mouth every pm ATORVASTATIN CALCIUM 75996357742 Active Francesca WEISS Active BACTRIM DS 800-160 MG ORAL TABLET 1 tab by mouth twice a day BACTRIM DS 800-160 MG ORAL TABLET 197908 TRIMETHOPRIM-SULFAMETHOXAZOLE Inactive RANITIDINE HCL 150 MG ORAL TABLET 1 by mouth twice a day RANITIDINE HCL 150 MG ORAL TABLET 321050 RANITIDINE HCL Inactive AZITHROMYCIN 250 MG ORAL TABLET 2 tablets by mouth on day one then one tablet by mouth each day for a total of 5 days AZITHROMYCIN 250 MG ORAL TABLET 254607 AZITHROMYCIN Inactive PREDNISONE 20 MG ORAL TABLET 1 tablet by mouth twice daily for 5 days PREDNISONE 20 MG ORAL TABLET 877993 PREDNISONE Inactive AUGMENTIN 875-125 MG ORAL TABLET 1 by mouth twice a day AUGMENTIN 875-125 MG ORAL TABLET 954058 AMOXICILLIN-POT CLAVULANATE Inactive DRAMAMINE 50 MG ORAL TABLET CHEWABLE 1 tab Q 4 hrs DRAMAMINE 50 MG ORAL TABLET CHEWABLE DIMENHYDRINATE Inactive MELBA ALLERGY 180 MG ORAL TABLET 1 by mouth every day MELBA ALLERGY 180 MG ORAL TABLET 176024 FEXOFENADINE HCL Inactive AUGMENTIN 875-125 MG ORAL TABLET Take one tablet by mouth every 12 hours for 10 days AUGMENTIN 875-125 MG ORAL TABLET 774024 AMOXICILLIN- POT CLAVULANATE Inactive FLONASE ALLERGY RELIEF 50 MCG/ACT NASAL SUSPENSION One spray per nostril daily. FLONASE ALLERGY RELIEF 50 MCG/ACT NASAL SUSPENSION 8626584 FLUTICASONE PROPIONATE Inactive METFORMIN HCL 500 MG ORAL TABLET 1 by mouth twice a day METFORMIN HCL 500 MG ORAL TABLET 570711 METFORMIN HCL Inactive AMLODIPINE BESYLATE 2.5 MG ORAL TABLET 1 tab by mouth daily AMLODIPINE BESYLATE 2.5 MG ORAL TABLET 227163 AMLODIPINE BESYLATE Inactive NIFEDIPINE ER 30 MG ORAL TABLET EXTENDED RELEASE 24 HOUR 1 by mouth every day NIFEDIPINE ER 30 MG ORAL TABLET EXTENDED RELEASE 24 HOUR NIFEDIPINE Inactive LOVAZA 1 GM ORAL CAPSULE take 1 tab po three times a day LOVAZA 1 GM ORAL CAPSULE 083057 [id number] ETHYL ESTERS Inactive ATROVENT 0.06 % NASAL SOLUTION 2 sprays in each nostril three times a day ATROVENT 0.06 % NASAL SOLUTION IPRATROPIUM BROMIDE Inactive TESSALON PERLES 100 MG ORAL CAPSULE 1 by mouth 3 times a day as needed for cough TESSALON PERLES 100 MG ORAL CAPSULE 302905 BENZONATATE Inactive KEFLEX 250 MG ORAL CAPSULE 1 by mouth 4 times a day KEFLEX 250 MG ORAL CAPSULE 599104 CEPHALEXIN Inactive LISINOPRIL-HYDROCHLOROTHIAZIDE 20-25 MG ORAL TABLET 1 by mouth daily LISINOPRIL-HYDROCHLOROTHIAZIDE 20-25 MG ORAL TABLET 648902 LISINOPRIL-HYDROCHLOROTHIAZIDE Inactive OMEPRAZOLE 20 MG ORAL CAPSULE DELAYED RELEASE 1 by mouth every day OMEPRAZOLE 20 MG ORAL CAPSULE DELAYED RELEASE 256348 OMEPRAZOLE Inactive BACTRIM DS 800-160 MG ORAL TABLET 1 tab by mouth twice a day TRIMETHOPRIM-SULFAMETHOXAZOLE 83436568937 No Longer Active Jose Bautista MD Active RANITIDINE HCL 150 MG ORAL TABLET 1 by mouth twice a day RANITIDINE HCL 92487547272 No Longer Active Jose Bautista MD Active AZITHROMYCIN 250 MG ORAL TABLET 2 tablets by mouth on day one then one tablet by mouth each day for a total of 5 days AZITHROMYCIN 71918648517 No Longer Active Mendoza Todd MD R3 Active PREDNISONE 20 MG ORAL TABLET 1 tablet by mouth twice daily for 5 days PREDNISONE 66165998215 No Longer Active Mendoza Todd MD R3 Active AUGMENTIN 875-125 MG ORAL TABLET 1 by mouth twice a day AMOXICILLIN-POT CLAVULANATE 49483541310 No Longer Active Jose Bautista MD Active DRAMAMINE 50 MG ORAL TABLET CHEWABLE 1 tab Q 4 hrs DIMENHYDRINATE 65373620469 No Longer Active Francesca WEISS Active MELBA ALLERGY 180 MG ORAL TABLET 1 by mouth every day FEXOFENADINE HCL 91402064936 No Longer Active Rosaura Falcon MD Active AUGMENTIN 875-125 MG ORAL TABLET Take one tablet by mouth every 12 hours for 10 days AMOXICILLIN-POT CLAVULANATE 71563262344 No Longer Active Jackie Doshi D.O. Active FLONASE ALLERGY RELIEF 50 MCG/ACT NASAL SUSPENSION One spray per nostril daily. FLUTICASONE PROPIONATE 40272240288 No Longer Active Rosaura Falcon MD Active METFORMIN HCL 500 MG ORAL TABLET 1 by mouth twice a day METFORMIN HCL 11764095758 No Longer Active Popeye Rodriguez MD Active AMLODIPINE BESYLATE 2.5 MG ORAL TABLET 1 tab by mouth daily AMLODIPINE BESYLATE 37064234834 No Longer Active Mendoza Todd MD R3 Active NIFEDIPINE ER 30 MG ORAL TABLET EXTENDED RELEASE 24 HOUR 1 by mouth every day NIFEDIPINE 36819186179 No Longer Active Nova Arellano MD Active LOVAZA 1 GM ORAL CAPSULE take 1 tab po three times a day [id number] ETHYL ESTERS 86279320392 No Longer Active Vicky Chambers MD Active ATROVENT 0.06 % NASAL SOLUTION 2 sprays in each nostril three times a day IPRATROPIUM BROMIDE 17177692332 No Longer Active Jackie Doshi D.O. Active TESSALON PERLES 100 MG ORAL CAPSULE 1 by mouth 3 times a day as needed for cough BENZONATATE 84590629125 No Longer Active Jim Piña DO Active KEFLEX 250 MG ORAL CAPSULE 1 by mouth 4 times a day CEPHALEXIN 47766692614 No Longer Active Jim Piña DO Active LISINOPRIL-HYDROCHLOROTHIAZIDE 20-25 MG ORAL TABLET 1 by mouth daily LISINOPRIL-HYDROCHLOROTHIAZIDE 34772189550 No Longer Active Nova Arellano MD Active OMEPRAZOLE 20 MG ORAL CAPSULE DELAYED RELEASE 1 by mouth every day OMEPRAZOLE 20012751837 No Longer Active Mendoza Todd MD R3 Active Immunizations Vaccine Administration Date Value Standard Description influenza immunization (Flu Vax) has been administered given elsewhere influenza virus vaccine, unspecified formulation influenza immunization (Flu Vax) has been administered given influenza virus vaccine, unspecified formulation PEDIATRIC PNEUMOCOCCAL VACCINE ([id number]) #1 given pneumococcal conjugate vaccine, 13 valent influenza immunization (Flu Vax) has been administered given influenza virus vaccine, unspecified formulation pneumococcal immunization administered given pneumococcal polysaccharide vaccine, 23 valent influenza immunization (Flu Vax) has been administered given influenza virus vaccine, unspecified formulation Vital Signs Date Name Value Unit Range Description blood pressure, diastolic 77 mm[Hg] BP shin blood pressure, systolic 133 mm[Hg] BP sys height E&M 66 [in_us] Bdy height pulse rate E&M 97 /min Heart rate respiratory rate E&M 19 /min Resp rate temperature E&M 98 [degF] Body temperature weight E&M 163.25 [lb_av] Weight Measured blood pressure, diastolic 81 mm[Hg] BP shin blood pressure, systolic 142 mm[Hg] BP sys height E&M 66 [in_us] Bdy height pulse rate E&M 81 /min Heart rate respiratory rate E&M 16 /min Resp rate temperature E&M 98.6 [degF] Body temperature weight E&M 165.70 [lb_av] Weight Measured blood pressure, diastolic 79 mm[Hg] BP shin blood pressure, systolic 137 mm[Hg] BP sys height E&M 66 [in_us] Bdy height pulse rate E&M 85 /min Heart rate respiratory rate E&M 20 /min Resp rate temperature E&M 98.5 [degF] Body temperature weight E&M 164.60 [lb_av] Weight Measured blood pressure, diastolic 80 mm[Hg] BP shin blood pressure, systolic 132 mm[Hg] BP sys height E&M 66 [in_us] Bdy height pulse rate E&M 82 /min Heart rate respiratory rate E&M 21 /min Resp rate temperature E&M 98.2 [degF] Body temperature weight E&M 164.20 [lb_av] Weight Measured blood pressure, diastolic, second observation 73 mm[Hg] BP shin blood pressure, diastolic 73 mm[Hg] BP shin blood pressure, systolic, second observation 122 mm[Hg] BP sys blood pressure, systolic 122 mm[Hg] BP sys height E&M 66 [in_us] Bdy height pulse rate E&M 82 /min Heart rate pulse rate #2 78 Heart rate respiratory rate E&M 21 /min Resp rate temperature E&M 98.9 [degF] Body temperature weight E&M 164.20 [lb_av] Weight Measured blood pressure, diastolic 79 mm[Hg] BP shin blood pressure, systolic 127 mm[Hg] BP sys height E&M 66 [in_us] Bdy height pulse rate E&M 86 /min Heart rate respiratory rate E&M 22 /min Resp rate temperature E&M 98.1 [degF] Body temperature weight E&M 156 [lb_av] Weight Measured Diagnostic Results Date Name Value Unit Range Description Lab Report: Stool Culture, Result, Stool Culture, Result, Stool Culture, ... - Lab Campybolacter culture, stool or rectal swab Final report Lab Report: COPY RECEIVED FROM:, PHOSPHATE ( PHOSPHORUS), BASIC METABO ... - Urinalysis WBC urine on microscopy NONE SEEN /HPF {Cells}/[HPF] < OR=5 Lab Report: COPY RECEIVED FROM:, PROTEIN, TOTAL AND PROTEIN ELECTROPHORE ... - Chemistry gamma globulin, serum 1000 mg/dL Units converted. See lab report for original value. Lab Report: Comp. Metabolic Panel (14), Hemoglobin A1c, TSH Rfx on Abnor ... - Chemistry urea nitrogen, blood 32 mg/dL 8-27 Lab Report: CBC With Differential/Platelet, Comp. Metabolic Panel (14), ... - Hematology erythrocyte (RBC) count 5.13 X10E6/UL 10*6/mm3 4.14-5.80 Lab Report: COPY RECEIVED FROM:, PHOSPHATE ( PHOSPHORUS), BASIC METABO ... - Urinalysis nitrite, urine, semiquantitative NEGATIVE NEGATIVE Lab Report: LIPID PANEL, HDL CHOLESTEROL, TRIGLYCERIDES, LDL-CHOLESTEROL ... - Chemistry cholesterol/HDL ratio, serum, percent 2.8 (calc) < OR=5.0 Lab Report: COPY RECEIVED FROM:, PHOSPHATE ( PHOSPHORUS), URIC ACID, B ... - Chemistry phosphate, serum 3.4 mg/dL 2.1-4.3 Lab Report: COPY RECEIVED FROM:, PHOSPHATE ( PHOSPHORUS), BASIC METABO ... - Urinalysis urine color YELLOW YELLOW Lab Report: CBC (INCLUDES DIFF/PLT), AMYLASE, LIPASE, URINALYSIS REFLEX - Hematology mean platelet volume 8.6 fL 7.5-11.5 Lab Report: Comp. Metabolic Panel (14), Hemoglobin A1c, TSH Rfx on Abnor ... - Chemistry urea nitrogen/creatinine ratio, serum 21 10-24 Lab Report: CBC With Differential/Platelet, Comp. Metabolic Panel (14), ... - Hematology mean corpuscular volume, RBC 91 fL 79-97 Lab Report: CBC With Differential/Platelet, Comp. Metabolic Panel (14), ... - Chemistry HDL cholesterol, serum 47 mg/dL >39 Lab Report: CBC With Differential/Platelet, Comp. Metabolic Panel (14), ... - Hematology monocytes as percent of blood leukocytes 6 % Not Estab. Lab Report: Comp. Metabolic Panel (14), Hemoglobin A1c, TSH Rfx on Abnor ... - Chemistry creatinine, serum 1.49 mg/dL 0.76-1.27 Lab Report: COPY RECEIVED FROM:, PHOSPHATE ( PHOSPHORUS), BASIC METABO ... - Urinalysis hyaline casts, urine NONE SEEN /[LPF] NONE SEEN Lab Report: Comp. Metabolic Panel (14), Hemoglobin A1c, TSH Rfx on Abnor ... - Chemistry bilirubin, serum, total 0.3 mg/dL 0.0-1.2 Lab Report: CBC With Differential/Platelet, Comp. Metabolic Panel (14), ... - Hematology Eosinophil Absolute Count 0.2 X10E3/UL 10*3/uL 0.0-0.4 leukocyte count, blood 5.8 X10E3/UL 10*3/mm3 3.4-10.8 Lab Report: COPY RECEIVED FROM:, PHOSPHATE ( PHOSPHORUS), BASIC METABO ... - Urinalysis pH, urine, semiquantitative 8.0 5.0-8.0 Lab Report: Comp. Metabolic Panel (14), Hemoglobin A1c, TSH Rfx on Abnor ... - Chemistry potassium, serum 4.6 mmol/L 3.5-5.2 albumin, serum 4.1 g/dL 3.6-4.8 Lab Report: CBC With Differential/Platelet, Comp. Metabolic Panel (14), ... - Hematology lymphocyte count, blood, automated 1.6 X10E3/UL 10*3/mm3 0.7-3.1 Lab Report: CBC With Differential/Platelet, Comp. Metabolic Panel (14), ... - Microbiology Neisseria gonorrhoeae DNA probe Negative Negative Lab Report: Comp. Metabolic Panel (14), Hemoglobin A1c, TSH Rfx on Abnor ... - Chemistry sodium, serum 139 mmol/L 134-144 Lab Report: LIPID PANEL, LIPID PANEL, LIPID PANEL, LIPID PANEL, LIPID PA ... - Chemistry TSH (thyroid stimulating hormone) with reflex FT4 0.94 m[iU]/L 0.40-4.50 Lab Report: CBC With Differential/Platelet, Comp. Metabolic Panel (14), ... - Hematology neutrophils as percent of blood leukocytes 62 % Not Estab. Lab Report: COPY RECEIVED FROM:, PHOSPHATE ( PHOSPHORUS), BASIC METABO ... - Chemistry occult blood, stool (E&M) NEGATIVE NEGATIVE Internal Correspondence: Pre-Visit Planning - Other List of providers caring for patient Angela Orellana, Anahy Phillips, and Rhona Paul Lab Report: COPY RECEIVED FROM:, PHOSPHATE ( PHOSPHORUS), BASIC METABO ... - Chemistry RBC, Urine NONE SEEN /HPF /[HPF] < OR=2 Lab Report: COPY RECEIVED FROM:, PHOSPHATE ( PHOSPHORUS), BASIC METABO ... - Urinalysis protein, urine, semiquantitative (dipstick) NEGATIVE NEGATIVE Lab Report: CBC With Differential/Platelet, Comp. Metabolic Panel (14), ... - Serology rapid plasma reagin antibody, serum Non Reactive Non Reactive Lab Report: CBC (INCLUDES DIFF/PLT), AMYLASE, LIPASE, URINALYSIS REFLEX - Chemistry Absolute Neutrophil count 4524 {Cells}/uL [id number] Lab Report: CBC With Differential/Platelet, Comp. Metabolic Panel (14), ... - Chemistry triglyceride, serum, fasting 152 mg/dL 0-149 Lab Report: Comp. Metabolic Panel (14), Hemoglobin A1c, TSH Rfx on Abnor ... - Chemistry calcium, serum 9.3 mg/dL 8.6-10.2 Lab Report: Comp. Metabolic Panel (14), Lipid Panel, Microalb/Creat Rati ... - Chemistry microalbumin/creatinine ratio, urine <3.8 mg/g creat ug/mg 0.0-30.0 Lab Report: COPY RECEIVED FROM:, PHOSPHATE ( PHOSPHORUS), BASIC METABO ... - Urinalysis bacteria, urine microscopy NONE SEEN NONE SEEN specific gravity, urine 1.020 1.001-1.035 Lab Report: CBC (INCLUDES DIFF/PLT), AMYLASE, LIPASE, URINALYSIS REFLEX - Chemistry lipase, serum 35 U/L [iU]/L 7-60 Lab Report: Comp. Metabolic Panel (14), Hemoglobin A1c, TSH Rfx on Abnor ... - Chemistry protein, total, serum 6.6 g/dL 6.0-8.5 alkaline phosphatase, serum 62 U/L 39-117 Lab Report: CBC With Differential/Platelet, Comp. Metabolic Panel (14), ... - Hematology lymphocytes as percent of blood leukocytes 28 % Not Estab. Lab Report: Comp. Metabolic Panel (14), Hemoglobin A1c, TSH Rfx on Abnor ... - Chemistry hemoglobin A1C, blood, as % of total hemoglobin 6.1 % 4.8-5.6 Lab Report: CBC (INCLUDES DIFF/PLT), AMYLASE, LIPASE, URINALYSIS REFLEX - Hematology eosinophils as percent of blood leukocytes 2.9 % Lab Report: Comp. Metabolic Panel (14), Hemoglobin A1c, TSH Rfx on Abnor ... - Genetics/fertility eGFR if 55 mL/min/1.73m2 >59 Lab Report: Comp. Metabolic Panel (14), Hemoglobin A1c, TSH Rfx on Abnor ... - Chemistry globulin, serum 2.5 1.5-4.5 Estimated Glomerular Filtration Rate (calc) 47 mL/min/1.73m2 >59 Lab Report: COPY RECEIVED FROM:, PHOSPHATE ( PHOSPHORUS), URIC ACID, B ... - Chemistry vitamin D 25-hydroxy, serum 76 ng/mL 30-100 Lab Report: CBC With Differential/Platelet, Comp. Metabolic Panel (14), ... - Chemistry prostate specific antigen 5.1 ng/mL 0.0-4.0 Lab Report: CBC (INCLUDES DIFF/PLT), AMYLASE, LIPASE, URINALYSIS REFLEX - Chemistry amylase, serum 35 U/L 21-101 Lab Report: CBC With Differential/Platelet, Comp. Metabolic Panel (14), ... - Hematology monocyte count, blood, automated 0.4 X10E3/UL 10*3/uL 0.1-0.9 Lab Report: Comp. Metabolic Panel (14), Hemoglobin A1c, TSH Rfx on Abnor ... - Chemistry thyroid stimulating hormone, serum 0.778 u[iU]/mL 0.450-4.500 Lab Report: CBC With Differential/Platelet, Comp. Metabolic Panel (14), ... - Chemistry very low density lipoproteins 30 mg/dL 5-40 Lab Report: LIPID PANEL, HDL CHOLESTEROL, TRIGLYCERIDES, LDL-CHOLESTEROL ... - Chemistry cholesterol, non-HDL, total 77 MG/DL (CALC) mg/dL Lab Report: COPY RECEIVED FROM:, PHOSPHATE ( PHOSPHORUS), URIC ACID, B ... - Chemistry uric acid, serum 6.3 mg/dL 4.0-8.0 Lab Report: Comp. Metabolic Panel (14), Hemoglobin A1c, TSH Rfx on Abnor ... - Chemistry chloride, serum 98 mmol/L 96-106 Lab Report: CBC (INCLUDES DIFF/PLT), AMYLASE, LIPASE, URINALYSIS REFLEX - Hematology Absolute Eosinophil count 189 {Cells}/uL 15-500 Lab Report: COPY RECEIVED FROM:, PHOSPHATE ( PHOSPHORUS), BASIC METABO ... - Urinalysis leukocyte esterase, urine, by dipstick NEGATIVE NEGATIVE Lab Report: CBC With Differential/Platelet, Comp. Metabolic Panel (14), ... - Hematology mean corpuscular hemoglobin concentration, RBC 32.4 G/DL % 31.5-35.7 Lab Report: CBC With Differential/Platelet, Comp. Metabolic Panel (14), ... - Serology hepatitis C antibody, serum <0.1 0.0-0.9 Lab Report: COPY RECEIVED FROM:, PHOSPHATE ( PHOSPHORUS), URIC ACID, B ... - Chemistry protein/creatinine, urine, point, quantitative 56 MG/G CREAT mg/g{creat} 22-128 Lab Report: CBC With Differential/Platelet, Comp. Metabolic Panel (14), ... - Chemistry Absolute Neutrophils 3.6 X10E3/UL 10*3/uL 1.4-7.0 Lab Report: COPY RECEIVED FROM:, PHOSPHATE ( PHOSPHORUS), BASIC METABO ... - Urinalysis bilirubin, urine NEGATIVE NEGATIVE Lab Report: CBC With Differential/Platelet, Comp. Metabolic Panel (14), ... - Chemistry LDL cholesterol, serum 65 mg/dL 0-99 Lab Report: Comp. Metabolic Panel (14), Hemoglobin A1c, TSH Rfx on Abnor ... - Chemistry ferritin, serum 99 ng/mL 30-400 albumin/globulin ratio, serum 1.6 1.2-2.2 Lab Report: CBC (INCLUDES DIFF/PLT), AMYLASE, LIPASE, URINALYSIS REFLEX - Hematology Absolute Monocyte count 488 {Cells}/uL 200-950 Lab Report: CBC With Differential/Platelet, Comp. Metabolic Panel (14), ... - Chemistry cholesterol, serum 142 mg/dL 536-016 3527/05/30 creatinine, random, urine 166.1 mg/dL Not Estab. Lab Report: COPY RECEIVED FROM:, PROTEIN, TOTAL AND PROTEIN ELECTROPHORE ... - Chemistry alpha-1 globulin, serum 0.2 g/dL 0.1-0.3 Lab Report: CBC With Differential/Platelet, Comp. Metabolic Panel (14), ... - Lab chlamydia DNA probe Negative Negative Lab Report: COPY RECEIVED FROM:, PHOSPHATE ( PHOSPHORUS), BASIC METABO ... - Urinalysis appearance, urine CLEAR CLEAR Lab Report: Comp. Metabolic Panel (14), Hemoglobin A1c, TSH Rfx on Abnor ... - Chemistry aspartate aminotransferase (SGOT), serum 22 U/L 0-40 Lab Report: CBC With Differential/Platelet, Comp. Metabolic Panel (14), ... - Hematology red blood cell distribution width 13.7 % 12.3-15.4 Lab Report: LIPID PANEL, HDL CHOLESTEROL, TRIGLYCERIDES, LDL-CHOLESTEROL ... - Chemistry globulins, serum, total 2.6 G/DL (CALC) g/dL 1.9-3.7 Lab Report: CBC With Differential/Platelet, Comp. Metabolic Panel (14), ... - Chemistry immature granulocytes, percentage of total cells, blood 0 % Not Estab. Lab Report: CBC With Differential/Platelet, Comp. Metabolic Panel (14), ... - Hematology hematocrit, blood 46.6 % 37.5-51.0 Lab Report: COPY RECEIVED FROM:, PHOSPHATE ( PHOSPHORUS), URIC ACID, B ... - Chemistry Parathormone (parathyroid hormone), bio-intact 24 pg/mL 14-64 Lab Report: Stool Culture, Result, Stool Culture, Result, Stool Culture, ... - Toxicology culture, salmonella and shigella, stool Final report Lab Report: CBC With Differential/Platelet, Comp. Metabolic Panel (14), ... - Hematology basophils as percent of blood leukocytes 0 % Not Estab. Lab Report: COPY RECEIVED FROM:, PHOSPHATE ( PHOSPHORUS), BASIC METABO ... - Microbiology squamous epithelial cells NONE SEEN /HPF /[LPF] < OR=5 Lab Report: Comp. Metabolic Panel (14), Hemoglobin A1c, TSH Rfx on Abnor ... - Chemistry carbon dioxide, venous blood 25 mmol/L 20-29 Lab Report: COPY RECEIVED FROM:, PROTEIN, TOTAL AND PROTEIN ELECTROPHORE ... - Chemistry alpha-2 globulin, serum 0.8 g/dL 0.5-1.0 Lab Report: Comp. Metabolic Panel (14), Hemoglobin A1c, TSH Rfx on Abnor ... - Chemistry alanine aminotransferase (SGPT), serum 20 U/L 0-44 Lab Report: CBC With Differential/Platelet, Comp. Metabolic Panel (14), ... - Hematology mean corpuscular hemoglobin, RBC 29.4 pg 26.6-33.0 hemoglobin, blood 15.1 g/dL 13.0-17.7 Lab Report: CBC With Differential/Platelet, Comp. Metabolic Panel (14), ... - Chemistry magnesium, serum 2.2 mg/dL 1.6-2.3 Lab Report: MICROALBUMIN, RANDOM URINE (W/CREATININE), MICROALBUMIN, RAN ... - Urinalysis microalbumin, random, urine 0.3 mg/dL See Note: Lab Report: COPY RECEIVED FROM:, PHOSPHATE ( PHOSPHORUS), BASIC METABO ... - Urinalysis glucose, urine, semiquantitative NEGATIVE NEGATIVE Lab Report: CBC With Differential/Platelet, Comp. Metabolic Panel (14), ... - Hematology basophil count, absolute 0.0 x10E3/uL 0.0-0.2 Lab Report: TSH+Free T4, CBC With Differential/Platelet, Basic Metabolic ... - Chemistry thyroxine, serum, free 1.31 ng/dL 0.82-1.77 Lab Report: HIV 1/2 ANTIGEN/ANTIBODY,FOURTH GENERATION W/RFL, HEPATITIS ... - Lab Hepatitis C Antibody, Signal to Cut-Off 0.01 <1.00 Lab Report: CBC (INCLUDES DIFF/PLT), AMYLASE, LIPASE, URINALYSIS REFLEX - Chemistry lymphocytes, absolute 1287 CELLS/UL 10*3/uL 850-3900 Lab Report: Stool Culture, Result, Stool Culture, Result, Stool Culture, ... - Toxicology Shiga Toxin EIA Negative Negative Lab Report: COPY RECEIVED FROM:, PROTEIN, TOTAL AND PROTEIN ELECTROPHORE ... - Chemistry beta globulin, serum 1.0 g/dL 0.8-1.4 Lab Report: CBC With Differential/Platelet, Comp. Metabolic Panel (14), ... - Urinalysis microalbumin/total urine volume 3.8 mg/L Not Estab. Lab Report: CBC With Differential/Platelet, Comp. Metabolic Panel (14), ... - Hematology eosinophils as percent of blood leukocytes 4 % Not Estab. Lab Report: Comp. Metabolic Panel (14), Hemoglobin A1c, TSH Rfx on Abnor ... - Chemistry blood glucose, random 115 mg/dL 65-99 Lab Report: COPY RECEIVED FROM:, PHOSPHATE ( PHOSPHORUS), URIC ACID, B ... - Chemistry protein, total urine random 10 mg/dL 5-25 Lab Report: CBC With Differential/Platelet, Comp. Metabolic Panel (14), ... - Hematology platelet count 184 X10E3/UL 10*3/mm3 150-379 Lab Report: COPY RECEIVED FROM:, PHOSPHATE ( PHOSPHORUS), BASIC METABO ... - Urinalysis ketones, urine, by test strip NEGATIVE NEGATIVE Encounters Date Encounter Provider Code Facility 15:36:42 MENTAL RETARDATION AIDE Est Patient Detailed - [id number] Mariam Swan MD R2 CPT-69562 [facility] 17:35:37 CDT Est Patient Exp Problem - 16410 Mariam Swan MD R2 CPT-18774 [facility] 09:03:20 CDT Est Patient Exp Problem - 05790 Jose Bautista MD CPT-59898 [facility] 17:29:18 CDT Est Patient Exp Problem - 96385 Mariam Swan MD R2 CPT-30975 [facility] 15:14:26 MENTAL RETARDATION AIDE Est Patient Detailed - [id number] Francesca Britt [facility] CPT-06786 [facility] 13:35:58 MENTAL RETARDATION AIDE Est Patient Detailed - 68212 Bushra Mcdermott MD CPT-28753 [facility] 14:17:15 CDT Est Patient Exp Problem - 75336 Bushra Mcdermott MD CPT-36612 [facility] 14:13:21 CDT Est Patient Exp Problem - 64493 Mendoza Todd MD R3 CPT-18390 [facility] 14:12:52 CDT Est Patient Exp Problem - 04360 Mendoza Todd MD R3 CPT-17520 [facility] 10:53:58 CDT Est Patient Exp Problem - 60853 Jose Bautista MD CPT-05861 [facility] 15:41:56 CDT Est Patient Exp Problem - 69515 Mendoza Todd MD R3 CPT-20823 [facility] 09:55:33 CDT Est Patient Exp Problem - 55155 Francesca Britt [facility] CPT-30294 [facility] 13:35:14 MENTAL RETARDATION AIDE Est Patient Exp Problem - 37533 Vicky Chambers MD CPT-06115 [facility] 09:59:54 MENTAL RETARDATION AIDE Est Patient Exp Problem - 76852 Johny Ruggiero MD CPT-08617 [facility] 12:11:44 MENTAL RETARDATION AIDE Est Patient Exp Problem - 70568 Vicky Chambers MD CPT-17441 [facility] 15:18:44 CDT Est Patient Detailed - 44785 Rosaura Falcon MD CPT-57168 [facility] 12:19:01 CDT Est Patient Exp Problem - 27699 Jacinda Mancini MD CPT-81300 [facility] 12:06:02 CDT Est Patient Exp Problem - 66556 Rosaura Falcon MD CPT-11096 [facility] 13:19:57 CDT Est Patient Exp Problem - 71397 Jackie Doshi D.O. CPT-53801 [facility] 10:15:07 CDT Est Patient Exp Problem - 53076 Jackie Doshi D.O. CPT-57139 [facility] 09:32:06 CDT Est Patient Exp Problem - 46683 Quiana Conklin MD CPT-47647 [facility] 10:39:15 CDT Est Patient Exp Problem - 52709 Quiana Conklin MD CPT-37711 [facility] 17:38:47 MENTAL RETARDATION AIDE Est Patient Exp Problem - 05888 Jose Bautista MD CPT-86994 [facility] 14:39:13 MENTAL RETARDATION AIDE Est Patient Exp Problem - 26188 Jackie Doshi D.O. CPT-10819 [facility] 14:15:57 CDT Est Patient Exp Problem - 93733 Nova Arellano MD CPT-72205 [facility] 15:35:20 CDT Est Patient Exp Problem - 08324 Jackie Sparrow.O. CPT-72792 [facility] 10:34:11 CDT Est Patient Exp Problem - 29120 Popeye Rodriguez MD CPT-28413 [facility] 19:27:07 CDT Est Patient Exp Problem - 47258 Nova Arellano MD CPT-44614 [facility] 00:37:12 MENTAL RETARDATION AIDE Est Patient Exp Problem - 32195 Popeye Rodriguez MD CPT-04963 [facility] 07:48:28 MENTAL RETARDATION AIDE Est Patient Exp Problem - 57154 Rosaura Falcon MD CPT-41989 [facility] 13:35:56 MENTAL RETARDATION AIDE Est Patient Problem Focus - 89131 Nova Arellano MD CPT-56449 [facility] 17:24:30 MENTAL RETARDATION AIDE Ofc Vst, Est Level III Nova Arellano MD CPT-39913 [facility] 10:48:41 MENTAL RETARDATION AIDE Est Patient Exp Problem - 41833 Jim Piña DO CPT-94596 [facility] 17:42:56 MENTAL RETARDATION AIDE Est Patient Exp Problem - 22124 Rosaura Falcon MD CPT-66963 [facility] 11:25:02 CDT Est Patient Exp Problem - 85828 Efraín Rivera MD CPT-19005 [facility] 16:22:31 CDT Est Patient Detailed - 33790 Jim Piña DO CPT-22362 [facility] 12:09:31 CDT Est Patient Detailed - 42028 Ramila Hernández MD CPT-91773 [facility] 12:45:26 CDT New Patient Detailed - 79866 Brad Munoz MD CPT-91313 [facility] Procedures Code Procedure Name Date Entry Date Standard Description CPT-21498 Aspiration / Injection - Major Joint / Bursa 10:27:39 MENTAL RETARDATION AIDE CPT-36987 Est Patient Well Exam (65 & Over) - 31849 09:06:35 CDT CPT-57602 INFLUENZA VACCINE QUADRIVALENT 3 YRS PLUS IM 12:11:44 MENTAL RETARDATION AIDE CPT-79340 Prevnar (PCV13) IM 12:11:44 MENTAL RETARDATION AIDE CPT-70947 Influenza - Adult - Injection 14:39:21 MENTAL RETARDATION AIDE CPT-30212 Pneumovax Vaccine 07:48:28 MENTAL RETARDATION AIDE CPT-26782 Aspiration / Injection - Major Joint / Bursa 13:34:56 MENTAL RETARDATION AIDE CPT-12506 Influenza - Adult - Injection 10:48:41 MENTAL RETARDATION AIDE
[2019-05-29 08:50] VITALS: BP 150/89
--- NOTE | 2019-05-29 22:50 | Operative Report ---
DATE OF PROCEDURE: 05/29/2019 SURGEON: Charlie Harvey MD PREOPERATIVE DIAGNOSIS: Right kidney stone. POSTOPERATIVE DIAGNOSIS: Right kidney stone. PROCEDURES: Staged right side shock wave lithotripsy. ANESTHESIA: General. ESTIMATED BLOOD LOSS: Minimal. COMPLICATIONS: None. INDICATIONS: Mr. Damon is a very pleasant 69-year-old male with a history of multiple renal calculi. He and I had a long discussion alternatives, risks, and benefits of doing nothing, shock wave lithotripsy, ureteroscopy, percutaneous surgery or open surgery. He voiced understanding of the options, alternatives, risks, and benefits and elected to proceed with shock wave lithotripsy. PROCEDURE IN DETAIL: Informed consent was obtained, the patient was taken to the operative suite, placed supine on the operating table. He underwent general anesthesia by the Anesthesia Service. Stone was localized in X, Y, and Z planes. Treatment was performed per the treatment report. The patient tolerated the procedure well and was transported to the recover room in excellent condition. No untoward effects noted. Charlie Harvey MD ES/MODL /[id number]
== END | disposition home or self-care (01) ==
LOC: OR 05:00
PROVIDERS: ATTEND Urology
DX: N20.0 Calculus of kidney (principal); N50.0 Atrophy of testis; I10 Essential (primary) hypertension; N52.9 Male erectile dysfunction, unspecified; R97.20 Elevated prostate specific antigen [PSA]; Z01.810 Encounter for preprocedural cardiovascular examination; Z01.812 Encounter for preprocedural laboratory examination; Z01.811 Encounter for preprocedural respiratory examination; E11.9 Type 2 diabetes mellitus without complications; E78.5 Hyperlipidemia, unspecified; K21.9 Gastro-esophageal reflux disease without esophagitis; J44.9 Chronic obstructive pulmonary disease, unspecified; G47.33 Obstructive sleep apnea (adult) (pediatric); Z79.84 Long term (current) use of oral hypoglycemic drugs
CPT/HCPCS: 36415 ×2; 50590; 71046; 74018; 80048; 82948; 85025; 93005; J0696; J2001; J2250; J2405; J2704